=== PATIENT | female | born 1985 | race Two or more races ===

== ENCOUNTER 2020-11-06 13:41 | Emergency (ER) | payer OTHER ==
[~2020-11-06] VITALS: Ht 165.1 cm; Wt 85.3 kg
[2020-11-06] MEDS ORDERED: INDERAL LA80 MG (13:54)
== END 2020-11-06 19:58 | disposition home or self-care (01) ==
LOC: ER 13:41
DX: N39.0 Urinary tract infection, site not specified (principal)

== ENCOUNTER 2023-01-05 15:16 | Outpatient (CLI) | payer OTHER ==
[~2023-01-05 15:16] MED LIST: INDERAL LA80 MG
== END 2023-01-05 17:17 | disposition home or self-care (01) ==
LOC: PRENATAL 15:16
PROVIDERS: ATTEND Obstetrics & Gynecology Maternal & Fetal Medicine
DX: O36.80X0 Pregnancy with inconclusive fetal viability, not applicable or unspecified (principal); O09.529 Supervision of elderly multigravida, unspecified trimester; O34.219 Maternal care for unspecified type scar from previous cesarean delivery; O10.019 Pre-existing essential hypertension complicating pregnancy, unspecified trimester; Z36.9 Encounter for antenatal screening, unspecified; Z3A.13 13 weeks gestation of pregnancy

== ENCOUNTER 2023-04-19 14:33 | Outpatient (CLI) | payer OTHER | END 2023-04-19 14:34 | disposition home or self-care (01) | LOC: PRENATAL 14:33 | PROVIDERS: ATTEND Obstetrics & Gynecology Maternal & Fetal Medicine | DX: O26.849 Uterine size-date discrepancy, unspecified trimester (principal); O09.529 Supervision of elderly multigravida, unspecified trimester; O34.219 Maternal care for unspecified type scar from previous cesarean delivery; O10.019 Pre-existing essential hypertension complicating pregnancy, unspecified trimester; Z3A.28 28 weeks gestation of pregnancy ==

== ENCOUNTER 2023-05-31 10:34 | Outpatient (CLI) | payer OTHER | END 2023-05-31 10:35 | disposition home or self-care (01) | LOC: PRENATAL 10:34 | PROVIDERS: ATTEND Obstetrics & Gynecology Maternal & Fetal Medicine | DX: O26.849 Uterine size-date discrepancy, unspecified trimester (principal); O36.8199 Decreased fetal movements, unspecified trimester, other fetus; O09.529 Supervision of elderly multigravida, unspecified trimester; O34.219 Maternal care for unspecified type scar from previous cesarean delivery; O10.019 Pre-existing essential hypertension complicating pregnancy, unspecified trimester; Z3A.34 34 weeks gestation of pregnancy ==